=== PATIENT | female | born 1980 | race African-American/Black ===

== ENCOUNTER 2016-06-27 00:17 | Emergency (ER) | payer MEDICARE, MEDICAID ==
--- NOTE | 2016-06-27 01:24 | ER Document Report ---
ED General - General Chief Complaint: Abdominal Pain Stated Complaint: ABDOMINAL PAIN,BLOOD IN STOOL Time Seen by Provider: 06/27/16 01:11 Notes: Patient is a 28-year-old female presents for complaint of 2 days of suprapubic abdominal pain. She also noticed some blood in her stool. She said 2 days ago she had more blood in her stool and it is starting to taper off. She has some dysuria. Some foul-smelling odor. No fevers. No vomiting. No diarrhea. No abnormal vaginal discharge or bleeding. Patient does not think she could be . She does have family history of colon cancer. She's had family members and their 30s and 40s who have had colon cancer. TRAVEL OUTSIDE OF THE [place] IN LAST 30 DAYS: No - Related Data Allergies/Adverse Reactions: No Known Allergies Allergy (Verified 06/27/16 00:40) Past Medical History - Social History Smoking Status: Never Smoker Frequency of alcohol use: None Drug Abuse: None Family History: Reviewed & Not Pertinent - Past Medical History Cardiac Medical History: Reports: Hx Hypertension Denies: Hx Coronary Artery Disease, Hx Heart Attack Pulmonary Medical History: Denies: Hx Asthma, Hx Bronchitis, Hx COPD, Hx Pneumonia Neurological Medical History: Denies: Hx Cerebrovascular Accident Endocrine Medical History: Reports: Hx Diabetes Mellitus Type 2 Renal/ Medical History: Reports: Hx Ovarian Cysts - PCOS. Denies: Hx Peritoneal Dialysis Musculoskeltal Medical History: Denies Hx Arthritis - Immunizations Hx Diphtheria, Pertussis, Tetanus Vaccination: No Review of Systems - Review of Systems Notes: My Normal Review Basic REVIEW OF SYSTEMS: CONSTITUTIONAL : Denies fever, chills, or sweats. Denies recent illness. EENT: Denies eye, ear, throat, or mouth pain or symptoms. Denies nasal or sinus congestion. CARDIOVASCULAR: Denies chest pain. RESPIRATORY: Denies cough, cold, or chest congestion. Denies shortness of breath, difficulty breathing, or wheezing. GASTROINTESTINAL: Suprapubic abdominal pain. Denies nausea, vomiting, or diarrhea. Denies constipation. GENITOURINARY: Some dysuria. FEMALE GENITOURINARY: Denies vaginal bleeding, abnormal or irregular periods. MUSCULOSKELETAL: Denies neck or back pain or joint pain or swelling. SKIN: Denies rash or skin lesions. NEUROLOGICAL: Denies altered mental status or loss of consciousness. Denies headache. Denies weakness or paralysis or loss of use of either side. Denies problems with gait or speech. Denies sensory or motor loss. ALL OTHER SYSTEMS REVIEWED AND NEGATIVE. Physical Exam - Vital signs Vitals: Temp Pulse Resp BP Pulse Ox 98.3 F 85 16 152/93 H 99 06/27/16 00:42 06/27/16 00:42 06/27/16 00:42 06/27/16 00:42 06/27/16 00:42 - Notes Notes: General Appearance: Well nourished, alert, cooperative, no acute distress, no obvious discomfort. Well-appearing. Vitals: reviewed, See vital signs table. Head: no swelling or tenderness to the head Eyes: PERRL, EOMI, Conjuctiva clear Mouth: No decreasd moisture Neck: Supple, no neck tenderness, No thyromegaly Lungs: No wheezing, No rales, No rhonci, No accessory muscle use, good air exchange bilaterally. Heart: Normal rate, Regular rythm, No murmur, no rub Abdomen: Normal BS, soft, No rigidity, mild suprapubic abdominal tenderness to palpation, No guarding, no rebound, no abdominal masses, no organomegaly Rectal: Patient has a few small nonbleeding hemorrhoids on external rectal exam. Extremities: strength 5/5 in all extremities, good pulses in all extremities, no swelling or tenderness in the extremities, no edema. Skin: warm, dry, appropriate color, no rash Neuro: speech clear, oriented x 3, normal affect, responds appropriately to questions. Course - Vital Signs Vital signs: Temp Pulse Resp BP Pulse Ox 98.0 F 85 17 128/76 H 97 06/27/16 04:08 06/27/16 04:08 06/27/16 04:08 06/27/16 04:08 06/27/16 04:08 - Laboratory Result Diagrams: 06/27/16 01:36 06/27/16 01:36 Laboratory results interpreted by me: 06/27/16 06/27/16 06/27/16 01:36 01:36 01:36 WBC 10.7 H Total Protein 8.5 H Urine Ascorbic Acid 40 H - Transfer of Care Notes: 06/27/16 04:33 The exact cause of patient's pain and dysuria is not clear. I will place on antibiotic just because her symptoms sound just like a developing UTI. I informed the patient of this plan. She's agreeable to it. I also informed the patient is extremely important she see a GI physician for the blood in stool she had. Currently she doesn't have any active bleeding; however, patient has a very strong family history of colon cancer young age and therefore to very important she follows up with a GI doctor for potential colonoscopy. I explained to the patient the reasons for this and she is agreeable to it. I've given her the name and numbers to the 2 local it security manager. She's encouraged return to ER shows worsening pain, fevers, vomiting, or heavy rectal bleeding. Dictation of this chart was performed using voice recognition software; therefore, there may be some unintended grammatical errors. 06/27/16 04:35 Discharge - Discharge Clinical Impression: Dysuria, Hematochezia Condition: Good Disposition: HOME, SELF-CARE Additional Instructions: The exact cause of your pain and and urinary discomfort is not clear at this time. Your urinalysis did not show any signs of infection at this time; however , sometimes symptoms occur first before infection will show in the urinalysis. We will therefore place you on 3 days of antibiotics. Please follow-up with your doctor at the end of this antibiotic course to be retested to see if you' re getting better. The exact cause of the blood in your stools is not clear. I am concerned that you do have a family history of colon cancer at a young age. I think it is extremely important you follow up with a it security manager so they can evaluate you to determine if you need a colonoscopy at this time. I 've given you the names of the 2 local it security manager. They are Dr. Drake and Dr. Godwin. Please call one of them to make a close follow-up appointment for evaluation. Please return to the ER immediately if you have worsening pain , fevers, or feel unwell. Prescriptions: Ciprofloxacin HCl [Cipro 500 mg Tablet] 500 mg PO BID #6 tablet Referrals: SHAHLA DRAKE MD [ACTIVE STAFF] - Follow up in 3-5 days KARINA GODWIN MD [ACTIVE STAFF] - Follow up in 3-5 days NEGRA HARGROVE MD [Primary Care Provider] - Follow up in 3-5 days
[2016-06-27 01:58] LABS: ABSOLUTE BASOPHILS # (AUTO) 0.1 10^3/uL (0.0-0.2); ABSOLUTE EOSINOPHILS # (AUTO) 0.4 10^3/uL (0.0-0.6); ABSOLUTE LYMPHOCYTES (AUTO) 4.2 10^3/uL (0.5-4.7); ABSOLUTE MONOCYTES (AUTO) 0.6 10^3/uL (0.1-1.4); ABSOLUTE NEUT (AUTO) 5.5 10^3/uL (1.7-8.2); BASOPHILS % (AUTO) 0.5 % (0-2); EOSINOPHILS % (AUTO) 4.1 % (0-6); HEMATOCRIT 36.2 % (36.0-47.0); HEMOGLOBIN 12.3 g/dL (12.0-15.5); HGB HCT DIFFERENCE 0.7; LYMPHOCYTES % (AUTO) 38.9 % (13-45); MEAN CORPUSCULAR HEMOGLOBIN 29.4 pg (27.0-33.4); MEAN CORPUSCULAR HGB CONC 33.9 g/dL (32.0-36.0); MEAN CORPUSCULAR VOLUME 87 fl (80-97); MONOCYTES % (AUTO) 5.8 % (3-13); RED BLOOD COUNT 4.17 10^6/uL (3.72-5.28); RED CELL DISTRIBUTION WIDTH 13.2 % (11.5-14.0); SEGMENTED NEUTROPHILS % (AUTO) 50.7 % (42-78); WHITE BLOOD COUNT 10.7 10^3/uL (4.0-10.5)
[2016-06-27 02:07] LABS: APPEARANCE,URINE CLEAR; BILIRUBIN,URINE NEGATIVE (NEGATIVE); GLUCOSE, URINE NEGATIVE (NEGATIVE); KETONES,URINE NEGATIVE (NEGATIVE); LEUKOCYTE ESTERASE,URINE NEGATIVE (NEGATIVE); NITRITE,URINE NEGATIVE (NEGATIVE); PROTEIN,URINE NEGATIVE (NEGATIVE); URINE SPECIFIC GRAVITY 1.019; UROBILINOGEN,URINE NEGATIVE mg/dL (<2.0)
[2016-06-27 02:22] LABS: ALANINE AMINOTRANSFERASE 31 U/L (9-52); ALBUMIN 4.6 g/dL (3.5-5.0); ALKALINE PHOSPHATASE 55 U/L (38-126); ANION GAP 14 (5-19); ASPARTATE AMINO TRANSFERASE 23 U/L (14-36); BILIRUBIN,DIRECT 0.4 mg/dL (0.0-0.4); BILIRUBIN,TOTAL 0.4 mg/dL (0.2-1.3); BLOOD UREA NITROGEN 11 mg/dL (7-20); CALCIUM 10.1 mg/dL (8.4-10.2); CARBON DIOXIDE 27 mmol/L (22-30); CHLORIDE 102 mmol/L (98-107); CREATININE RESULT 0.89 mg/dL (0.52-1.25); GLUCOSE 109 mg/dL (75-110); POTASSIUM 4.4 mmol/L (3.6-5.0); SODIUM 142.7 mmol/L (137-145); TOTAL PROTEIN 8.5 g/dL (6.3-8.2)
[2016-06-27] MEDS ORDERED: HYDROCODONE/ACETAMINOPHEN 5-325 MG TABLET PO ONE (02:41)
[2016-06-27] MEDS ORDERED: CIPROFLOXACIN HCL 500 MG TABLET PO ONE (04:31)
[2016-06-27 05:04] LABS: CHLAM PCR NOT DETECTED (NOT DETECT)
[2016-06-27 05:15] VITALS: BP 128/76
== END 2016-06-27 04:40 | disposition home or self-care (01) ==
LOC: ER 00:17
DX: K92.1 Melena (principal); R30.0 Dysuria; R10.30 Lower abdominal pain, unspecified; K64.4 Residual hemorrhoidal skin tags; R39.89 Other symptoms and signs involving the genitourinary system; R10.9 Unspecified abdominal pain; I10 Essential (primary) hypertension; Z80.0 Family history of malignant neoplasm of digestive organs
CPT/HCPCS: 99284; 36415; 87210; 83690; 84703; 85025; 80053; 81001; 87491; 87591; A9270 ×2

== ENCOUNTER 2017-06-20 14:41 | Emergency (ER) | payer MEDICARE, MEDICAID ==
--- NOTE | 2017-06-20 16:14 | ER Document Report ---
ED Medical Screen (RME) - General Chief Complaint: Abdominal Pain Stated Complaint: STOMACH PAIN Time Seen by Provider: 06/20/17 16:02 Notes: RAPID MEDICAL EVALUATION DISCLOSURE I have seen this patient as part of a Rapid Medical Evaluation and, if applicable, placed any initially appropriate orders. The patient will be seen and fully evaluated, including a full history and physical exam, by a provider ( in Main ED or Fast Track) when a room becomes available. 37-year-old female here with complaints of continued vaginal bleeding and lower abdominal intermittent cramping ongoing for the past several weeks (ever since ). She reports going through 1 or 2 pads every hour and states that she is now getting lightheaded and feeling tired. This morning she had a syncopal episode and fell onto the couch on her right side and is having some pain from that. She describes the pain is in her upper back and the right side of her neck. She reports being unable to follow-up with her [employer] due to "scheduling issues". She normally does not have a menstrual cycle and "it comes on whenever he wants to". EXAM No midline cervical spine tenderness but there is some right paraspinal muscle tenderness There is mild right superior trapezius muscle tenderness No abdominal tenderness TRAVEL OUTSIDE OF THE [place] IN LAST 30 DAYS: No - Related Data Allergies/Adverse Reactions: No Known Allergies Allergy (Verified 06/27/16 00:40) Home Medications: labetolol. metformin. ibuprofen. naproxen Past Medical History - Social History Frequency of alcohol use: Rare Drug Abuse: None - Past Medical History Cardiac Medical History: Reports: Hx Hypercholesterolemia, Hx Hypertension Denies: Hx Coronary Artery Disease, Hx Heart Attack Pulmonary Medical History: Denies: Hx Asthma, Hx Bronchitis, Hx COPD, Hx Pneumonia Neurological Medical History: Denies: Hx Cerebrovascular Accident Endocrine Medical History: Reports: Hx Diabetes Mellitus Type 2 Renal/ Medical History: Reports: Hx Ovarian Cysts - PCOS. Denies: Hx Peritoneal Dialysis Musculoskeltal Medical History: Denies Hx Arthritis - Immunizations Hx Diphtheria, Pertussis, Tetanus Vaccination: No Physical Exam - Vital signs Vitals: Temp Pulse Resp BP Pulse Ox 97.9 F 88 20 134/89 H 98 06/20/17 14:54 06/20/17 14:54 06/20/17 14:54 06/20/17 14:54 06/20/17 14:54 Course - Vital Signs Vital signs: Temp Pulse Resp BP Pulse Ox 97.9 F 88 20 134/89 H 98 06/20/17 14:54 06/20/17 14:54 06/20/17 14:54 06/20/17 14:54 06/20/17 14:54
[2017-06-20 17:39] LABS: ABSOLUTE EOSINOPHILS # (AUTO) 0.1 10^3/uL (0.0-0.6); ABSOLUTE LYMPHOCYTES (AUTO) 2.7 10^3/uL (0.5-4.7); ABSOLUTE MONOCYTES (AUTO) 0.5 10^3/uL (0.1-1.4); ABSOLUTE NEUT (AUTO) 6.3 10^3/uL (1.7-8.2); BASOPHILS % (AUTO) 0.3 % (0-2); EOSINOPHILS % (AUTO) 1.5 % (0-6); HEMATOCRIT 29.3 % (36.0-47.0); HEMOGLOBIN 9.7 g/dL (12.0-15.5); LYMPHOCYTES % (AUTO) 28.3 % (13-45); MEAN CORPUSCULAR HEMOGLOBIN 29.2 pg (27.0-33.4); MEAN CORPUSCULAR VOLUME 89 fl (80-97); MONOCYTES % (AUTO) 5.4 % (3-13); PLATELET COUNT 441 10^3/uL (150-450); RED BLOOD COUNT 3.31 10^6/uL (3.72-5.28); RED CELL DISTRIBUTION WIDTH 15.7 % (11.5-14.0); SEGMENTED NEUTROPHILS % (AUTO) 64.5 % (42-78); TOTAL CELLS COUNTED % (AUTO) 100 %; WHITE BLOOD COUNT 9.7 10^3/uL (4.0-10.5)
[2017-06-20 17:53] LABS: ANION GAP 9 (5-19); BLOOD UREA NITROGEN 11 mg/dL (7-20); CALCIUM 9.8 mg/dL (8.4-10.2); CARBON DIOXIDE 31 mmol/L (22-30); CHLORIDE 103 mmol/L (98-107); GLUCOSE 116 mg/dL (75-110); POTASSIUM 4.1 mmol/L (3.6-5.0); SODIUM 142.6 mmol/L (137-145)
[2017-06-20] MEDS ORDERED: TRANEXAMIC ACID INJ/PF 1,000 MG/10 ML SDV IV ONE (18:05)
--- NOTE | 2017-06-20 18:18 | EKG REPORT ---
SEVERITY:- NORMAL ECG - SINUS RHYTHM : Confirmed by: Buster Fitzpatrick MD 20-Jun-2017 18:17:59
--- NOTE | 2017-06-20 18:45 | ER Document Report ---
ED General - General Chief Complaint: Abdominal Pain Stated Complaint: STOMACH PAIN Time Seen by Provider: 06/20/17 16:02 Mode of Arrival: Ambulatory Information source: Patient Notes: A 37-year-old female with history of PCOS, abnormal periods presents with complaint of heavy vaginal bleeding that started 3 weeks prior to arrival. Patient states that she is going through more than 2 pads per hour. She has had associated dizziness and "fell out" today onto the couch. She states that she stood up quickly from the couch, fell lightheaded and backwards onto the couch. She denies any head injury or loss of consciousness. She is unsure if she is currently . She does admit to being sexually active with her and not using protection. Her last normal period was December 2016. She does have a history of heavy bleeding which required D&C. Patient also experiencing intermittent abdominal cramping. She has tried to contact her OB Dr. Small and is unable to get in to him. She currently denies chest pain, shortness of breath TRAVEL OUTSIDE OF THE [place] IN LAST 30 DAYS: No - HPI Onset: Other - 3 weeks prior to arrival Onset/Duration: Constant Quality of pain: Cramping Associated symptoms: Other - Lightheaded Exacerbated by: Denies Relieved by: Denies Similar symptoms previously: Yes Recently seen / treated by doctor: No - Related Data Allergies/Adverse Reactions: No Known Allergies Allergy (Verified 06/27/16 00:40) Home Medications: labetolol. metformin. ibuprofen. naproxen Past Medical History - General Information source: Patient - Social History Smoking Status: Never Smoker Frequency of alcohol use: Rare Drug Abuse: None Lives with: Spouse/Significant other Family History: Reviewed & Not Pertinent Patient has suicidal ideation: No Patient has homicidal ideation: No - Past Medical History Cardiac Medical History: Reports: Hx Hypercholesterolemia, Hx Hypertension Denies: Hx Coronary Artery Disease, Hx Heart Attack Pulmonary Medical History: Denies: Hx Asthma, Hx Bronchitis, Hx COPD, Hx Pneumonia Neurological Medical History: Denies: Hx Cerebrovascular Accident Endocrine Medical History: Reports: Hx Diabetes Mellitus Type 2 Renal/ Medical History: Reports: Hx Ovarian Cysts - PCOS. Denies: Hx Peritoneal Dialysis Musculoskeltal Medical History: Denies Hx Arthritis - Immunizations Hx Diphtheria, Pertussis, Tetanus Vaccination: No Review of Systems - Review of Systems Notes: Patient denies fever, chills, nausea, vomiting, headache, ear pain, sore throat , cough, chest pain, abdominal pain, back pain, dysuria, hematuria, rash, SI/ HI. Physical Exam - Vital signs Vitals: Temp Pulse Resp BP Pulse Ox 97.9 F 88 20 134/89 H 98 06/20/17 14:54 06/20/17 14:54 06/20/17 14:54 06/20/17 14:54 06/20/17 14:54 Interpretation: Normal - Notes Notes: PHYSICAL EXAMINATION: GENERAL: Well-appearing, well-nourished and in no acute distress. HEAD: Atraumatic, normocephalic. EYES: Pupils equal round and reactive to light, extraocular movements intact, conjunctiva are normal. ENT: Nares patent, oropharynx clear without exudates. Moist mucous membranes. NECK: Normal range of motion, supple without lymphadenopathy LUNGS: Breath sounds clear to auscultation bilaterally and equal. No wheezes rales or rhonchi. HEART: Regular rate and rhythm without murmurs ABDOMEN: Soft, nontender, nondistended abdomen. No guarding, no rebound. No masses appreciated. Female : No external lesions, vaginal bleeding without vaginal laceration, no cervical motion tenderness. Os closed, Musculoskeletal: Normal range of motion, no pitting or edema. No cyanosis. NEUROLOGICAL: Cranial nerves grossly intact. Normal speech, normal gait. Normal sensory, motor exams PSYCH: Normal mood, normal affect. SKIN: Warm, Dry, normal turgor, no rashes or lesions noted. Course - Re-evaluation Re-evalutation: Laboratory 06/20/17 06/20/17 06/20/17 17:15 17:15 17:25 WBC 9.7 RBC 3.31 L Hgb 9.7 L Hct 29.3 L MCV 89 MCH 29.2 MCHC 33.0 RDW 15.7 H Plt Count 441 Seg Neutrophils % 64.5 Lymphocytes % 28.3 Monocytes % 5.4 Eosinophils % 1.5 Basophils % 0.3 Absolute Neutrophils 6.3 Absolute Lymphocytes 2.7 Absolute Monocytes 0.5 Absolute Eosinophils 0.1 Absolute Basophils 0.0 Sodium Potassium Chloride Carbon Dioxide Anion Gap BUN Creatinine Est GFR ( Amer) Est GFR (Non-Af Amer) Glucose Calcium Urine Color YELLOW Urine Appearance SLIGHTLY-CLOUDY Urine pH 6.0 Ur Specific [place] 1.028 Urine Protein 30 H Urine Glucose (UA) NEGATIVE Urine Ketones NEGATIVE Urine Blood LARGE H Urine Nitrite NEGATIVE Urine Bilirubin NEGATIVE Urine Urobilinogen NEGATIVE Ur Leukocyte Esterase NEGATIVE Urine WBC (Auto) 7 Urine RBC (Auto) >182 Squamous Epi Cells Auto 1 Urine Mucus (Auto) OCC Urine Ascorbic Acid 20 H Urine HCG, Qual NEGATIVE Epi Cells (Wet Prep) Trichomonas (Wet Prep) Vaginal WBC Vaginal RBC Vaginal Yeast Chlamydia DNA (PCR) N.gonorrhoeae DNA (PCR) 06/20/17 06/20/17 06/20/17 17:25 20:21 20:21 WBC RBC Hgb Hct MCV MCH MCHC RDW Plt Count Seg Neutrophils % Lymphocytes % Monocytes % Eosinophils % Basophils % Absolute Neutrophils Absolute Lymphocytes Absolute Monocytes Absolute Eosinophils Absolute Basophils Sodium 142.6 Potassium 4.1 Chloride 103 Carbon Dioxide 31 H Anion Gap 9 BUN 11 Creatinine 0.87 Est GFR ( Amer) > 60 Est GFR (Non-Af Amer) > 60 Glucose 116 H Calcium 9.8 Urine Color Urine Appearance Urine pH Ur Specific [place] Urine Protein Urine Glucose (UA) Urine Ketones Urine Blood Urine Nitrite Urine Bilirubin Urine Urobilinogen Ur Leukocyte Esterase Urine WBC (Auto) Urine RBC (Auto) Squamous Epi Cells Auto Urine Mucus (Auto) Urine Ascorbic Acid Urine HCG, Qual Epi Cells (Wet Prep) 3+ EPITHELIALS SEEN Trichomonas (Wet Prep) NO TRICHOMONAS SEEN Vaginal WBC RARE WBCS SEEN Vaginal RBC 4+ RBCS SEEN Vaginal Yeast NO YEAST SEEN Chlamydia DNA (PCR) NOT DETECTED N.gonorrhoeae DNA (PCR) NOT DETECTED 06/22/17 14:17 37-year-old female presents with complaint of heavy vaginal bleeding, abdominal cramping. Vaginal bleeding started 3 weeks prior to arrival, cramping started 3 days ago. Patient describes an episode of standing up quickly from the couch feeling lightheaded and falling backwards. She denies any loss of consciousness or head injury. Upon arrival vitals reviewed, patient is afebrile , mildly hypertensive and sick. She does not appear toxic or dehydrated. She is in no acute distress. CBC was obtained and did show the patient had a hemoglobin of 9.7. When previous labs reviewed from 1 year ago this is a significant drop from her baseline of 15. Patient received IV fluids, TXA, Tylenol. Pelvic exam was significant for blood otherwise normal. On reevaluation patient states the bleeding has greatly slowed. She will be prescribed 5 days of TXA and started on an [id number] control pill. I did look up the cost of the medications on good and relayed the presents to the patient states that should not be a problem. Patient and her were provided the opportunity to ask questions, and express concerns. Discharge instructions discussed. Patient is agreeable with discharge home. Return indications explained and discussed with the patient who displays understanding. Patient encouraged to return to the emergency department immediately with any concerns. 06/22/17 14:19 - Vital Signs Vital signs: Temp Pulse Resp BP Pulse Ox 98.3 F 72 16 148/74 H 94 06/20/17 20:50 06/20/17 20:50 06/20/17 20:50 06/20/17 20:50 06/20/17 20:50 - Laboratory Result Diagrams: 06/20/17 17:25 06/20/17 17:25 Laboratory results interpreted by me: 06/20/17 06/20/17 06/20/17 17:15 17:25 17:25 RBC 3.31 L Hgb 9.7 L Hct 29.3 L RDW 15.7 H Carbon Dioxide 31 H Glucose 116 H Urine Protein 30 H Urine Blood LARGE H Urine Ascorbic Acid 20 H Discharge - Discharge Clinical Impression: Episode of heavy vaginal bleeding, Dizziness Anemia Qualifiers: Anemia type: unspecified type Qualified Code(s): D64.9 - Anemia, unspecified Disposition: HOME, SELF-CARE Instructions: Vaginal Bleeding ([facility]) Additional Instructions: Follow up with your physician tomorrow for further care or return to the ED IMMEDIATELY if symptoms worsen or new concerns occur. If you cannot afford to follow up with your primary care physician a list of low cost clinics have been provided at the end of your discharge papers as well. Prescriptions: Norgestimate-Ethinyl Estradiol [Ortho Tri-Cyclen Lo Tablet] 1 each PO ASDIR #1 packet Tranexamic Acid [Lysteda] 1,300 mg PO TID 5 Days #30 tablet Referrals: KYLEE SMALL MD [Primary Care Provider] - Follow up as needed
[2017-06-20] MEDS ORDERED: NORMAL SALINE 1000 ML 1,000 ML IV ONE (19:50)
[2017-06-20] MEDS ORDERED: KETOROLAC TROMETHAMINE INJ/PF 30 MG/1 ML SDV IV ONE (20:24)
[2017-06-20 20:37] LABS: EPITHELIALS (WET MOUNT) 3+ EPITHELIALS SEEN; RBCS (WET MOUNT) 4+ RBCS SEEN; T.VAGINALIS (WET MOUNT) NO TRICHOMONAS SEEN; WBCS (WET MOUNT) RARE WBCS SEEN; YEAST (WET MOUNT) NO YEAST SEEN
[2017-06-20 20:52] VITALS: BP 148/74
[2017-06-20 21:32] LABS: APPEARANCE,URINE SLIGHTLY-CLOUDY; BILIRUBIN,URINE NEGATIVE (NEGATIVE); COLOR,URINE YELLOW; GLUCOSE, URINE NEGATIVE (NEGATIVE); KETONES,URINE NEGATIVE (NEGATIVE); LEUKOCYTE ESTERASE,URINE NEGATIVE (NEGATIVE); NITRITE,URINE NEGATIVE (NEGATIVE); PROTEIN,URINE 30 mg/dL (NEGATIVE); URINE SPECIFIC GRAVITY 1.028; UROBILINOGEN,URINE NEGATIVE mg/dL (<2.0)
[2017-06-20 22:04] LABS: CHLAM PCR NOT DETECTED (NOT DETECT); GON PCR NOT DETECTED (NOT DETECT)
== END 2017-06-20 21:10 | disposition home or self-care (01) ==
LOC: ER 14:41
DX: N93.9 Abnormal uterine and vaginal bleeding, unspecified (principal); D64.9 Anemia, unspecified; R42 Dizziness and giddiness; R10.9 Unspecified abdominal pain; I10 Essential (primary) hypertension; E11.9 Type 2 diabetes mellitus without complications; E28.2 Polycystic ovarian syndrome; Z79.84 Long term (current) use of oral hypoglycemic drugs; Z79.899 Other long term (current) drug therapy
CPT/HCPCS: 93005; 99284; 96361; 96374; 36415; 87210; 85025; 81025; 80048; 81001; 87491; 87591; 93010; J7030; J3490

== ENCOUNTER 2018-02-27 06:56 | Emergency (ER) | payer MEDICARE, MEDICAID ==
[2018-02-27] MEDS ORDERED: RINGERS SOLUTION,LACTATED 1,000 ML IV ONE (07:27)
--- NOTE | 2018-02-27 08:10 | ER Document Report ---
ED General - General Chief Complaint: Vag Bleeding, +preg <12wks Stated Complaint: FALL Time Seen by Provider: 02/27/18 07:05 TRAVEL OUTSIDE OF THE [place] IN LAST 30 DAYS: No - HPI Patient complains to provider of: Abdominal pain vaginal bleeding Notes: Patient is a coming in for abdominal pain left lower quadrant and vaginal spotting and bleeding patient states most of the spine bleeding was yesterday. Patient states she does have a history of an ectopic with removal of her left fallopian tube. Patient states that she was carrying groceries yesterd ay when she slipped and fell fell downstairs since that time having abdominal pain and vaginal bleeding. Patient otherwise states past medical history for hypertension and diabetes. Patient does not smoke does not use drugs does denies any recent sexual intercourse. Patient is unaware of her blood type. Patient otherwise is resting comfortably upon my evaluation denies any loss of consciousness denies any other chest pain or any other abdominal pain no extremity pain. - Related Data Allergies/Adverse Reactions: No Known Allergies Allergy (Verified 06/27/16 00:40) Past Medical History - Social History Smoking Status: Never Smoker Chew tobacco use (# tins/day): No Frequency of alcohol use: None Drug Abuse: None Family History: Reviewed & Not Pertinent Patient has suicidal ideation: No Patient has homicidal ideation: No - Past Medical History Cardiac Medical History: Reports: Hx Hypercholesterolemia, Hx Hypertension Denies: Hx Coronary Artery Disease, Hx Heart Attack Pulmonary Medical History: Denies: Hx Asthma, Hx Bronchitis, Hx COPD, Hx Pneumonia Neurological Medical History: Denies: Hx Cerebrovascular Accident Endocrine Medical History: Reports: Hx Diabetes Mellitus Type 2 Renal/ Medical History: Reports: Hx Ovarian Cysts - PCOS. Denies: Hx Peritoneal Dialysis Musculoskeletal Medical History: Denies Hx Arthritis - Immunizations Hx Diphtheria, Pertussis, Tetanus Vaccination: No Review of Systems - Review of Systems Constitutional: No symptoms reported EENT: No symptoms reported Cardiovascular: No symptoms reported Respiratory: No symptoms reported Gastrointestinal: Abdominal pain Genitourinary: No symptoms reported Female Genitourinary: Vaginal bleeding Musculoskeletal: No symptoms reported Skin: No symptoms reported Hematologic/Lymphatic: No symptoms reported Neurological/Psychological: No symptoms reported -: Yes All other systems reviewed and negative Physical Exam - Vital signs Vitals: Temp Pulse Resp BP Pulse Ox 98.4 F 87 16 144/88 H 97 02/27/18 07:00 02/27/18 07:00 02/27/18 07:00 02/27/18 07:00 02/27/18 07:00 Interpretation: Normal - General General appearance: Appears well, Alert - HEENT Head: Normocephalic, Atraumatic Eyes: Normal Pupils: PERRL - Respiratory Respiratory status: No respiratory distress Chest status: Nontender Breath sounds: Normal Chest palpation: Normal - Cardiovascular Rhythm: Regular Heart sounds: Normal auscultation Murmur: No - Abdominal Inspection: Normal Distension: No distension Bowel sounds: Normal Tenderness: Nontender Organomegaly: No organomegaly - Back Back: Normal, Nontender - Extremities General upper extremity: Normal inspection, Nontender, Normal color, Normal ROM, Normal temperature General lower extremity: Normal inspection, Nontender, Normal color, Normal ROM, Normal temperature, Normal weight bearing. No: Reji's sign - Neurological Neuro grossly intact: Yes Cognition: Normal Orientation: AAOx4 [place] Coma Scale Eye Opening: Spontaneous [place] Coma Scale Verbal: Oriented [place] Coma Scale Motor: Obeys Commands [place] Coma Scale Total: 15 Speech: Normal Motor strength normal: LUE, RUE, LLE, RLE Sensory: Normal - Psychological Associated symptoms: Normal affect, Normal mood - Skin Skin Temperature: Warm Skin Moisture: Dry Skin Color: Normal Course - Re-evaluation Re-evalutation: 02/27/18 08:10 basic laboratory studies and ultrasound will be performed. 02/27/18 14:50 Ultrasound shows twin gestations laboratory studies not show any acute findings except for asymptomatic bacteriuria patient will be started on Keflex patient will be discharged home follow-up with [facility] - Vital Signs Vital signs: Temp Pulse Resp BP Pulse Ox 98.4 F 87 17 113/69 98 02/27/18 07:00 02/27/18 07:00 02/27/18 09:01 02/27/18 09:00 02/27/18 09:01 - Laboratory Result Diagrams: 02/27/18 08:30 02/27/18 08:30 Laboratory results interpreted by me: 02/27/18 02/27/18 02/27/18 08:30 08:30 08:30 WBC 12.0 H Hgb 11.3 L Hct 33.4 L RDW 14.9 H Plt Count 493 H Eosinophils % 7.1 H Absolute Eosinophils 0.8 H Sodium 135.8 L Glucose 120 H Beta HCG, Quant 83576.00 H Ur Leukocyte Esterase TRACE H Urine Ascorbic Acid 40 H Discharge - Discharge Clinical Impression: Abdominal pain during , Twin gestation in first trimester, Bacteriuria during Condition: Good Disposition: HOME, SELF-CARE Instructions: Abdominal Pain ([facility]), Bleeding During Early ([facility]), Urinary Tract Infection ([facility]) Additional Instructions: Your ultrasound today shows twin gestation your laboratory studies not show any abnormality except for a small amount of bacteria in the urine we will treat this as a urinary tract infection with a medication called Keflex. Please continue your vitamins he may use the Reglan as prescribed for any nausea you may have the lowest further information for nausea and vomiting medications she can take in . You have been seen for vomiting during . You should continue to drink plenty of water and consider taking a solution such as Pedialyte if your having difficulty eating food. Please return if you become unable to drink any fluids for more than 12 hours, urinate less than twice a day, pass out, or have any other symptoms that are concerning to you. For nausea and vomiting during I recomment: Start with 10-12.5 mg of pyridoxine (vitamin B6) three times a day for 2 days. If not fully effective, Increase to 12.5 mg of pyridoxine four times a day for 2 days. If not fully effective, Increase to 25 mg of pyridoxine three times a day for 2 days. If not fully effective, Continue 25 mg pyridoxine 3 times a day, and add 12.5 mg of doxylamine before bedtime each day for 2 days. If not fully effective, Continue 25 mg pyridoxine 3 times a day, and take 12.5 mg of doxylamine twice a day. If not fully effective, Continue 25 mg pyridoxine 3 times a day, and take 12.5 mg of doxylamine three ti mes a day. If not fully effective, Continue 25 mg pyridoxine 3 times a day, and 12.5 mg of doxylamine 3 times a day, while adding Emetrol, one to two tablespoons (15-30 cc) taken once or twice a day as needed. (Emetrol is an juzq-[id number]-[id number] mixture of sugar syrups and phosphoric acid [phosphorylated carbohydrate solution]) that acts by soothing the actual wall of the gastrointestinal tract). If not fully effective, Consult with your doctor. Prescriptions: Cephalexin Monohydrate [Keflex 500 mg Capsule] 500 mg PO QID #20 capsule Metoclopramide HCl [Reglan] 5 mg PO Q6 #30 tablet Referrals: KYLEE SMALL MD [Primary Care Provider] - Follow up in 3-5 days
[2018-02-27] MEDS ORDERED: ACETAMINOPHEN 325 MG TABLET PO ONE (08:46)
--- NOTE | 2018-02-27 08:48 | RADIOLOGY REPORT (SQ) ---
EXAM DESCRIPTION: U/S OB TRANSVAG W/DOPPLER COMPLETED DATE/TIME: 02/27/2018 8:29 am REASON FOR STUDY: +preg bleeding with fall llq pain COMPARISON: None. TECHNIQUE: Transvaginal static and realtime grayscale images acquired of the pelvis. Additional maldonado cted spectral and color Doppler images recorded. All images stored on PACs. bHCG: Not available. CLINICAL DATES: VIVIANA: 09/23/2018. EGA: 10 weeks 2 days LIMITATIONS: Limited examination see comments below. FINDINGS: FETUS: Twin . Two gestational sacs were identified. The examination was termin ated at the patient's request due to pain. ULTRASOUND EGA: 6 weeks 4 days ULTRASOUND VIVIANA: 10/19/2018 EFW: Not applicable less than 20 weeks. CRL: Not visualized. FHR: Not obtained. SURVEY: Not obtained. AMNIOTIC FLUID: Adequate amount. PLACENTA: Not yet developed due to early gestation. SUBCHORIONIC BLEED: No. SIZE OF BLEED: Not applicable. UTERUS: The uterus measures 11.9 x 8.3 x 7.3 cm a 1.8 x 2.2 x 2.5 cm hypoechoic mass in the body of the uterus suggests fibroid. CERVICAL LENGTH: 2.0 cm Closed. RIGHT ADNEXA: Not visualized due to overlying bowel gas. LEFT ADNEXA: Not visualized due to overlying bowel gas. FREE FLUID: None. OTHER: No other significant finding. IMPRESSION: Limited examination. Twin . Two gestational sacs were visualized, the examinat ion was terminated at the patient's request due to pain. EGA: 6 weeks 4 days Uterine fibroid Trimester of : First - 0 to 13 weeks. TECHNICAL DOCUMENTATION: JOB ID: [id number]- All Rights Reserved rev-07/01 Reading location - IP/workstation name: [email or web address]
[2018-02-27 08:58] LABS: ABSOLUTE EOSINOPHILS # (AUTO) 0.8 10^3/uL (0.0-0.6); ABSOLUTE LYMPHOCYTES (AUTO) 3.2 10^3/uL (0.5-4.7); ABSOLUTE MONOCYTES (AUTO) 0.6 10^3/uL (0.1-1.4); ABSOLUTE NEUT (AUTO) 7.3 10^3/uL (1.7-8.2); BASOPHILS % (AUTO) 0.4 % (0-2); EOSINOPHILS % (AUTO) 7.1 % (0-6); HEMATOCRIT 33.4 % (36.0-47.0); HEMOGLOBIN 11.3 g/dL (12.0-15.5); LYMPHOCYTES % (AUTO) 26.6 % (13-45); MEAN CORPUSCULAR HEMOGLOBIN 28.5 pg (27.0-33.4); MEAN CORPUSCULAR HGB CONC 33.8 g/dL (32.0-36.0); MEAN CORPUSCULAR VOLUME 84 fl (80-97); MONOCYTES % (AUTO) 4.8 % (3-13); PLATELET COUNT 493 10^3/uL (150-450); RED BLOOD COUNT 3.96 10^6/uL (3.72-5.28); RED CELL DISTRIBUTION WIDTH 14.9 % (11.5-14.0); SEGMENTED NEUTROPHILS % (AUTO) 61.1 % (42-78); TOTAL CELLS COUNTED % (AUTO) 100 %
[2018-02-27 08:59] LABS: APPEARANCE,URINE CLOUDY; BILIRUBIN,URINE NEGATIVE (NEGATIVE); COLOR,URINE YELLOW; GLUCOSE, URINE NEGATIVE (NEGATIVE); KETONES,URINE NEGATIVE (NEGATIVE); LEUKOCYTE ESTERASE,URINE TRACE (NEGATIVE); NITRITE,URINE NEGATIVE (NEGATIVE); PROTEIN,URINE NEGATIVE (NEGATIVE); URINE SPECIFIC GRAVITY 1.018; UROBILINOGEN,URINE NEGATIVE mg/dL (<2.0)
[2018-02-27 09:12] LABS: ANION GAP 8 (5-19); BLOOD UREA NITROGEN 7 mg/dL (7-20); CARBON DIOXIDE 25 mmol/L (22-30); CHLORIDE 103 mmol/L (98-107); GLUCOSE 120 mg/dL (75-110); POTASSIUM 4.4 mmol/L (3.6-5.0); SODIUM 135.8 mmol/L (137-145)
[2018-02-27 10:52] VITALS: BP 113/69
== END 2018-02-27 10:52 | disposition home or self-care (01) ==
LOC: ER 06:56
DX: R10.32 Left lower quadrant pain (principal); W10.9XXA Fall (on) (from) unspecified stairs and steps, initial encounter; R82.71 Bacteriuria; O30.001 Twin pregnancy, unspecified number of placenta and unspecified number of amniotic sacs, first trimester; O20.9 Hemorrhage in early pregnancy, unspecified; O26.891 Other specified pregnancy related conditions, first trimester; O16.1 Unspecified maternal hypertension, first trimester; O24.111 Pre-existing type 2 diabetes mellitus, in pregnancy, first trimester; E11.9 Type 2 diabetes mellitus without complications; Z3A.00 Weeks of gestation of pregnancy not specified; Z90.79 Acquired absence of other genital organ(s); Z87.59 Personal history of other complications of pregnancy, childbirth and the puerperium
CPT/HCPCS: 99284; 96360; 36415; 84702; 85025; 80048; 81001; 76817; 93976; A9270; J7120

== ENCOUNTER 2018-07-09 06:13 | Emergency (ER) | payer MEDICARE, MEDICAID ==
[2018-07-09 06:26] VITALS: BP 130/79
[2018-07-09] MEDS ORDERED: IPRATROPIUM/ALBUTEROL 0.5-2.5 MG/3 ML AMPUL NEB ONE (06:51)
[2018-07-09] MEDS ORDERED: FLUTICASONE NASAL SPRAY 50 MCG/SPRY 120 SPRAY/16 GM NASL SCH (07:00)
[2018-07-09 07:04] LABS: APPEARANCE,URINE SLIGHTLY-CLOUDY; BILIRUBIN,URINE NEGATIVE (NEGATIVE); COLOR,URINE YELLOW; GLUCOSE, URINE NEGATIVE (NEGATIVE); KETONES,URINE TRACE mg/dL (NEGATIVE); LEUKOCYTE ESTERASE,URINE TRACE (NEGATIVE); NITRITE,URINE NEGATIVE (NEGATIVE); PROTEIN,URINE NEGATIVE (NEGATIVE); URINE SPECIFIC GRAVITY 1.021; UROBILINOGEN,URINE NEGATIVE mg/dL (<2.0)
--- NOTE | 2018-07-09 07:17 | ER Document Report ---
ED General - General Chief Complaint: Shortness Of Breath Stated Complaint: SHORTNESS OF BREATH Time Seen by Provider: 07/09/18 06:31 Primary Care Provider: JENNIFER MCCULLOUGH MD [NO LOCAL MD] - Follow up as needed Mode of Arrival: Ambulatory Information source: Patient, [facility] Records Notes: 38-year-old female at 25 weeks with medical history of asthma, diabetes, hypertension, hyperlipidemia presents with multiple complaints including nasal congestion, rhinorrhea, sore throat, productive cough and shortness of breath that has been ongoing for 2 days. Patient states her shortness of breath is associated with a constant productive cough with green-yellow sputum. She describes her throat pain as burning, worse with swallowing. Patient shortness of breath is worse with activity and coughing and not relieved with her albuterol treatment. Patient also complaining of constipation, straining when she goes and bright red blood per rectum. Patient also states that she has had mild spotting from her vagina. She does report a history of this during her . She has been receiving care. Patient denies loss of fluids, fever, chills, nausea, vomiting, chest pain, dysuria. TRAVEL OUTSIDE OF THE [place] IN LAST 30 DAYS: No - HPI Onset: Other Onset/Duration: Gradual, Persistent Quality of pain: Achy, Burning Severity: Mild Associated symptoms: Allergy/hay fever, Body/muscle aches, Productive cough, Earache, Rhinnorhea, Sinus pain/drainage, Shortness of breath, Sore throat. denies: Chest pain, Chills, Fever, Headache, Nausea, Vomiting Exacerbated by: Coughing Relieved by: Denies Similar symptoms previously: No Recently seen / treated by doctor: Yes - Related Data Allergies/Adverse Reactions: No Known Allergies Allergy (Verified 07/09/18 08:53) Past Medical History - General Information source: Patient, [facility] Records - Social History Smoking Status: Never Smoker Frequency of alcohol use: None Drug Abuse: None Lives with: Spouse/Significant other Family History: Reviewed & Not Pertinent Patient has suicidal ideation: No Patient has homicidal ideation: No - Past Medical History Cardiac Medical History: Reports: Hx Hypercholesterolemia, Hx Hypertension Denies: Hx Coronary Artery Disease, Hx Heart Attack Pulmonary Medical History: Denies: Hx Asthma, Hx Bronchitis, Hx COPD, Hx Pneumonia Neurological Medical History: Denies: Hx Cerebrovascular Accident Endocrine Medical History: Reports: Hx Diabetes Mellitus Type 2 Renal/ Medical History: Reports: Hx Ovarian Cysts - PCOS. Denies: Hx Peritoneal Dialysis Musculoskeletal Medical History: Denies Hx Arthritis - Immunizations Hx Diphtheria, Pertussis, Tetanus Vaccination: No Review of Systems - Review of Systems Constitutional: Recent illness. denies: Fever, Weakness EENT: Nose congestion, Nose discharge, Sinus pressure, Throat pain Cardiovascular: denies: Chest pain, Palpitations, Dizziness Respiratory: Cough, Short of breath, Wheezing Gastrointestinal: Blood streaked bowels. denies: Abdominal pain, Diarrhea, Nausea Genitourinary: denies: Dysuria Female Genitourinary: No symptoms reported, Vaginal bleeding Physical Exam - Vital signs Vitals: Temp Pulse Resp BP Pulse Ox 97.8 F 95 20 130/79 H 98 07/09/18 06:21 07/09/18 06:21 07/09/18 06:21 07/09/18 06:21 07/09/18 06:21 Course - Re-evaluation Re-evalutation: Temp Pulse Resp BP Pulse Ox 97.8 F 95 20 130/79 H 98 07/09/18 06:21 07/09/18 06:21 07/09/18 06:21 07/09/18 06:21 07/09/18 06:21 07/09/18 07:45 Patient reports improvement of her cough, shortness of breath after receiving a DuoNeb. She is requesting an albuterol inhaler for home. She states she has Flonase. Patient will be discharged to labor and delivery. heart tones were obtained and 163 and 161. Patient has twin gestation. 07/09/18 10:54 Presentation is most consistent with a viral upper respiratory infection. Patient is overall well appearance, vitals within normal limits, well-hydrated. Patient denies any headache, neck pain, and has no evidence of meningismus on examination. Lungs are clear bilaterally. No evidence of respiratory distress. Based on clinical exam and history, I do not suspect an acute pneumonia, meningitis, strep pharyngitis, or an acute encephalitis. No laboratory or imaging testing is indicated at this time. Will discharge patient with return precautions and followup recommendations. They are in agreement this plan have verbalized understanding return precautions. Patient was discharged to labor and delivery. - Vital Signs Vital signs: Temp Pulse Resp BP Pulse Ox 97.8 F 95 20 130/79 H 98 05/26/19 06:21 07/09/18 06:21 07/09/18 06:21 07/09/18 06:21 07/09/18 06:21 - Laboratory Laboratory results interpreted by me: 07/09/18 06:30 Urine Ketones TRACE H Ur Leukocyte Esterase TRACE H Discharge - Discharge Clinical Impression: Elevated blood pressure reading, Third trimester Upper respiratory infection Qualifiers: URI type: unspecified URI Qualified Code(s): J06.9 - Acute upper respiratory infection, unspecified Sinusitis Qualifiers: Sinusitis location: unspecified location Chronicity: unspecified Qualified Code(s): J32.9 - Chronic sinusitis, unspecified Pharyngitis Qualifiers: Pharyngitis/tonsillitis etiology: unspecified etiology Qualified Code(s): J02.9 - Acute pharyngitis, unspecified Condition: Good Disposition: LABOR CHECK Instructions: Upper Respiratory Illness ([facility]), Viral Syndrome ([facility]) Additional Instructions: Your symptoms are most likely due to a viral infection it should resolve over the next 7-14 days. You should take vhig-bsw-xobdamk guanfacine per bottle instructions to help thin the mucus. For nasal congestion: I would recommend that you get nyni-cmu-swottbo oxymetazoline also known is afrin. Use only per bottle instructions and be sure to never use this for more than 3 days if you can develop severe rebound congestion. You may also use tylenol or ibuprofen as needed for aches and thorat discomfort. Please be sure to drink plenty of fluids and get rest. Return to the emergency department he began having difficulty saul athing, chest pain, persistent vomiting, or any other symptoms that are concerning to you. Forms: Elevated Blood Pressure Referrals: JENNIFER MCCULLOUGH MD [NO LOCAL MD] - Follow up as needed
[2018-07-09] MEDS ORDERED: ALBUTEROL SULFATE HFA (90 MCG/PUFF) 8 GM MDI (1 MDI/ER DISP) IH SCH (07:45)
== END 2018-07-09 07:53 | disposition admitted as inpatient to this hospital (09) ==
LOC: ER 06:13
DX: O26.92 Pregnancy related conditions, unspecified, second trimester (principal); J02.9 Acute pharyngitis, unspecified; J06.9 Acute upper respiratory infection, unspecified; J32.9 Chronic sinusitis, unspecified; R03.0 Elevated blood-pressure reading, without diagnosis of hypertension; R06.02 Shortness of breath; Z3A.25 25 weeks gestation of pregnancy
CPT/HCPCS: 94640; 99284; 82962; 81001; 76815; J3490; A9270; J7620

== ENCOUNTER 2018-07-09 07:58 | Outpatient (CLI) | payer MEDICARE, MEDICAID ==
--- NOTE | 2018-07-09 10:21 | RADIOLOGY REPORT (SQ) ---
EXAM DESCRIPTION: U/S OB LIMITED COMPLETED DATE/TIME: 07/09/2018 9:51 am REASON FOR STUDY: Cervical Length COMPARISON: None. TECHNIQUE: Limited transvaginal grayscale ultrasound for evaluation of specific requested obstetrica l parameters. LIMITATIONS: None. FINDINGS: Twin A posterior placenta. heart rate 153. Adequate amniotic fluid. Breech presen tation. Twin B anterior placenta. heart rate cannot be assessed due to limited visualization. Adequat e amniotic fluid. Transverse presentation. Cervix 2.4 cm and closed. IMPRESSION: LIMITED OBSTETRICAL ULTRASOUND WITH MEASURED PARAMETERS DELINEATED ABOVE. Trimester of : Third trimester - 28 weeks to delivery. TECHNICAL DOCUMENTATION: JOB ID: [id number] [employer]- All Rights Reserved Reading location - IP/workstation name: [email or web address]
== END 2018-07-09 11:19 | disposition home or self-care (01) ==
LOC: LC 07:58
PROVIDERS: ATTEND Obstetrics & Gynecology
PROC: 4A1HXCZ Monitoring of Products of Conception, Cardiac Rate, External Approach (ICD-10-PCS; principal; 2018-07-09)
DX: O47.02 False labor before 37 completed weeks of gestation, second trimester (principal); O24.912 Unspecified diabetes mellitus in pregnancy, second trimester; O16.2 Unspecified maternal hypertension, second trimester; O09.522 Supervision of elderly multigravida, second trimester; Z3A.25 25 weeks gestation of pregnancy
CPT/HCPCS: 76815